=== PATIENT | female | born 1930 | race Caucasian/White ===

== ENCOUNTER → 2016-08-11 | Outpatient (CLI) | payer MEDICARE, BC ==
[~2016-08-11] MED LIST: AMIODARONE PO; ANTIVERT PO; ATACAND PO; BACLOFEN10 MG PO; CALTRATE PLUS T1 TAB PO; CARVEDILOL3.125 MG PO; CIPRO PO; COUMADIN PO; COUMADIN2.5 MG; COUMADIN2.5 MG PO; DARVOCET-N 1001 TA1 PO; FENOFIBRATE145 MG PO; FLAGYL PO; FOSAMAX70 MG PO; FUROSEMIDE40 MG PO; GLUCOSAMINE; JANTOVEN2.5 MG PO; K-TAB ER20 MEQ PO; KCL PO; LASIX PO; MEDI-MECLIZINE25 M1 PO; MOTION RELIEF25 MG PO; NEXIUM PO; NORVASC PO; PACERONE100 MG PO; PATIENT'S PHARMACY; PHENERGAN PO; PHENERGAN25 M1 PO; SIMVASTATIN40 MG PO; SYNTHROID; SYNTHROID PO; SYNTHROID25 MCG PO; TOPROL XL PO; TRICOR PO; TYLENOL EXTRA500 M1 PO; TYLENOL PM EX-S1 TA4 PO; TYLENOL PM PO; TYLENOL PO; VITAL-D RX TABL1 TAB PO; VITAMIN D 4001 UDTAB PO; ZOCOR PO; [UNRECOGNIZED DRUG - OTHER]
--- NOTE | ~2016-08-11 | MY11 ---
[facility] A Service of [facility] RADIOLOGY TEXT RESULTS PATIENT: NENA CAMARILLO LOCATION: [facility] : 30 UNIT #: [id number] AGE: [address]: Jose Bermudez MD SEX: F ORDER DR: [id number] [facility] [address] [place], [place] [address] [id number] O MR#: [id number] Acc #: [id number] NAME: NENA CAMARILLO : 1930 SEX: F STUDY DATE/TIME: 08/11/2016 12:47 UNIT: [facility] ROOM: STUDY DESCRIPTION: MY Mammogram Screening Dig Jose Attending Physician: Jose Bermudez M.D. Referring Physician: Jose Bermudez M.D. Ordering Physician: Jose Bermudez M.D. Primary Care Physician: Jose Bermudez M.D. MEDICAL IMAGING REPORT This report is preliminary unless electronic signature is present EXAM Digital screening mammogram, 08/11/2016. HISTORY An 85-year-old woman no risk elevation. Annual screening COMPARISON Mammogram date to 05/21/2007 with most recent 05/03/2015. FINDINGS Digital imaging of each breast was completed utilizing screening protocol. Review includes FDA-approved CAD device. Breast parenchyma is predominantly fatty replaced. There is no breast mass. There are calcifications with benign characteristics bilaterally. Vascular calcification is also noted in each breast. I see no suspicious mass and no suspicious microcalcifications. There is no architectural deformity. IMPRESSION Benign mammogram. Annual screening recommended. BIRADS II Patients over the age of 40 are entered into a reminder system with target due date for the next mammogram. A result letter will also be sent to the patient. BIRADS: 2 Benign Finding Dictated by... Akash Dwyer M.D. THIS IS AN ELECTRONICALLY VERIFIED REPORT [facility] A Service [facility] RADIOLOGY TEXT RESULTS PATIENT: NENA CAMARILLO LOCATION: [facility] : 30 UNIT #: [id number] AGE: [address]: Jose Bermudez MD SEX: F ORDER DR: Akash Dwyer M.D. at 08/12/2016 8:12 AM SHEKHAR/vicky TD: 08/11/2016 16:03 JOB #: [id number] MEDICAL IMAGING REPORT Page 1 of 1 COPY
== END | disposition home or self-care (01) ==
LOC: CWCC 12:12
DX: Z12.31 Encounter for screening mammogram for malignant neoplasm of breast (principal)
CPT/HCPCS: G0202

== ENCOUNTER → 2016-09-17 | Outpatient (CLI) | payer MEDICARE, BC ==
[2016-09-17 11:08] LABS: ALBUMIN SERUM 3.6 g/dL (3.5-5.0); BUN/CREATININE RATIO 24.28; CALCIUM SERUM 9.2 mg/dL (8.4-10.2); CREATININE SERUM 1.4 mg/dL (0.6-1.4); GLOM FILT RATE Estimated 34.2 mL/min (>60); POTASSIUM 4.5 mmol/L (3.5-5.1); PROTEIN TOTAL SERUM 6.2 g/dL (6.0-8.3)
== END | disposition home or self-care (01) ==
LOC: CSSDAY 10:15
PROVIDERS: Internal Medicine
DX: M81.0 Age-related osteoporosis without current pathological fracture (principal)
CPT/HCPCS: 36415; 80053; 82947; J0897